=== PATIENT | male | born 1965 | race African-American/Black ===

== ENCOUNTER 2017-04-24 09:13 | Outpatient (CLI) | payer MEDICARE, MEDICAID ==
[~2017-04-24] VITALS: Ht 177.8 cm; Wt 154.2 kg
[~2017-04-24 09:13] MED LIST: ASPIRIN81 MG ORAL
[2017-04-24] MEDS ORDERED: OMEPRAZOLE20 M2 ORAL (09:53)
[2017-04-24] MEDS ORDERED: FUROSEMIDE40 MG/5 ML ORAL (09:53)
[2017-04-24] MEDS ORDERED: COREG12.5 MG ORAL (09:53)
[2017-04-24] MEDS ORDERED: DOCUSATE SODIU100 MG ORAL (09:53)
[2017-04-24] MEDS ORDERED: LIPITOR80 MG ORAL (09:53)
[2017-04-24] MEDS ORDERED: ISORDIL40 MG ORAL (09:53)
[2017-04-24] MEDS ORDERED: NORVASC10 MG ORAL (09:53)
[2017-04-24] MEDS ORDERED: LYRICA100 MG ORAL (09:53)
[2017-04-24] MEDS ORDERED: EFFIENT10 MG PO (09:53)
[2017-04-24] MEDS ORDERED: SENNA LAX8.6 MG PO (09:53)
[2017-04-24] MEDS ORDERED: NAPROXEN250 M1 PO (09:53)
[2017-04-24 09:54] VITALS: BP 175/115
--- NOTE | 2017-04-24 09:56 | GI Initial Consult Note ---
History of Present Illness General Date patient seen: Apr 24, 2017 Time patient seen: 09:47 Referring physician: SACHI LOZANO Reason for Consultation: SCREENING COLON Present Illness HPI 51 year old male patient referred by Dr. Lozano presents today for routine colonoscopy screening. Last colonoscopy was approximately 7 years ago with unremarkable results. Today, the patient has c/o of GERD and constipation. Denies any unintentional weight loss or changes in dietary habits. No signs of abuse or neglect. Patient is not fall risk. 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 EF 45% Home Meds Active Scripts Aspirin* (ASPIRIN*) 81 Mg Tab.chew, 81 MG ORAL DAILY, #60 TAB Prov:WILBUR HERNANDEZ D.OChapincito 09/23/13 Reported Medications Pregabalin (LYRICA) 100 Mg Capsule, 75 MG ORAL THREE TIMES A DAY, CAP 04/24/17 Naproxen (Naproxen) 250 Mg Tablet, 500 MG PO, TAB 04/24/17 Docusate Sodium* (DOCUSATE SODIUM*) 100 Mg Capsule, 100 MG ORAL THREE TIMES A DAY, CAP 04/24/17 Amlodipine Besylate (Norvasc) 10 Mg Tablet, 10 MG ORAL DAILY, TAB 04/24/17 Prasugrel Hcl (EFFIENT) 10 Mg Tablet, 10 MG PO, TAB 04/24/17 Atorvastatin (Lipitor) 80 Mg Tablet, 80 MG ORAL DAILY, TAB 0 Refills 04/24/17 Isosorbide Dinitrate (ISORDIL*) 40 Mg Tablet, MG ORAL, #30 TAB 0 Refills 04/24/17 Omeprazole (OMEPRAZOLE) 20 Mg Capsule.dr, 20 MG ORAL DAILY, CAP 04/24/17 Carvedilol (Coreg) 12.5 Mg Tablet, 12.5 MG ORAL EVERY 12 HOURS, TAB 04/24/17 Furosemide (FUROSEMIDE) 40 Mg/5 Ml Solution, 20 MG ORAL DAILY, ML 04/24/17 Sennosides (SENNA LAX) 8.6 Mg Tablet, 8.6 MG PO, TAB 04/24/17 Med list reviewed/reconciled: Yes Allergies: Coded Allergies: No Known Allergies (Unverified , 09/23/13) Patient History History Provided By: Patient, Medical Record PMH Narrative HTN Sleep Apnea >> CPAP [place] 2013 arthritis GERD constipation Past Surgical History: Lap Band 7-8 yrs ago Angiogram Family History Narrative Mother >> breast CA Social History: Reports: smoking - quit 30 years ago Review of Systems All Other Systems: negative except mentioned in HPI Physical Exam T 98.6 BP 175/115 P 58 97 RA Height 5'10 WT 340 lbs Sp02 EP Interpretation: reviewed, normal General Appearance: well appearing, no apparent distress, alert Head: normocephalic EENT: PERRL/EOMI, normal ENT inspection Neck: supple Respiratory: normal breath sounds, no respiratory distress Cardiovascular: normal rate Gastrointestinal: normal inspection, non tender, soft, normal bowel sounds, non -distended Rectal: deferred Genitourinary: deferred Musculoskeletal: normal inspection, back normal Neurologic: normal inspection, alert, oriented x3, responsive Psychiatric: normal inspection, judgement/insight normal, memory normal Skin: normal inspection, normal color, no rash, warm/dry, palpation normal, well hydrated Lymphatic: normal inspection, no adenopathy GI: Plan Problems: (1) GERD (gastroesophageal reflux disease) (2) Colon cancer screening (3) Constipation (4) HTN (hypertension) (5) Morbid obesity with BMI of 50.0-59.9, adult Plan Colonoscopy scheduled for tomorrow, 04/24/17. - CLD & (Nulytely/Suprep/Movi-Prep) prep instructions given and acknowledged by patient. - NPO @ [place] day prior procedure explained. - patient instructed to stop Effient today. cont bowel regime ppi Seen with Dr. Sanchez. Thank you for this patient referral. Mary Chacko N.P. Apr 24, 2017 09:56
== END 2017-04-24 09:45 | disposition home or self-care (01) ==
LOC: PAN 09:13
DX: K21.9 Gastro-esophageal reflux disease without esophagitis (principal); K59.00 Constipation, unspecified; I10 Essential (primary) hypertension; E66.01 Morbid (severe) obesity due to excess calories; Z68.43 Body mass index [BMI] 50.0-59.9, adult; Z87.891 Personal history of nicotine dependence; G47.30 Sleep apnea, unspecified; I25.2 Old myocardial infarction; M19.90 Unspecified osteoarthritis, unspecified site; Z79.82 Long term (current) use of aspirin
CPT/HCPCS: 99201

== ENCOUNTER 2017-04-25 06:58 | Day surgery (SDC) | payer MEDICARE, MEDICAID ==
[~2017-04-25] VITALS: Ht 177.8 cm; Wt 154.2 kg
[2017-04-25] VITALS (7 sets, daily range): BP systolic 121–144; BP diastolic 74–95
[~2017-04-25 06:58] MED LIST changes: +COREG12.5 MG ORAL; +DOCUSATE SODIU100 MG ORAL; +EFFIENT10 MG PO; +FUROSEMIDE40 MG/5 ML ORAL; +ISORDIL40 MG ORAL; +LIPITOR80 MG ORAL; +LYRICA100 MG ORAL; +NAPROXEN250 M1 PO; +NORVASC10 MG ORAL; +OMEPRAZOLE20 M2 ORAL; +SENNA LAX8.6 MG PO
[2017-04-25 08:19] LABS: BASOPHILS % (AUTO) 1.4 % (0.0-2.0); EOSINOPHILS % (AUTO) 0.4 % (0.0-3.0); HEMATOCRIT 48.9 % (42.0-52.0); HEMOGLOBIN 15.8 G/DL (14.2-18.0); MEAN CORPUSCULAR VOLUME 90 FL (80-99); MONOCYTES % (AUTO) 10.8 % (1.0-10.0); NEUTROPHILS % (AUTO) 50.5 % (45.0-75.0); PLATELET COUNT 147 K/UL (150-450); RED BLOOD COUNT 5.46 M/UL (4.70-6.10); RED CELL DISTRIBUTION WIDTH 13.3 % (11.6-14.8); WHITE BLOOD COUNT 4.6 K/UL (4.8-10.8)
[2017-04-25 08:30] LABS: INR 1.1 (0.9-1.1)
[2017-04-25 08:32] LABS: ANION GAP 8 mmol/L (5-15); BLOOD UREA NITROGEN 13 mg/dL (7-18); CALCIUM 8.6 MG/DL (8.5-10.1); CARBON DIOXIDE 29 MMOL/L (21-32); CHLORIDE 106 MMOL/L (98-107); CREATININE 1.1 MG/DL (0.55-1.30); POTASSIUM 3.2 MMOL/L (3.5-5.1); SODIUM 143 MMOL/L (136-145)
[2017-04-25] MEDS ORDERED: Propofol 200mg/20ml IV ONE (09:00)
[2017-04-25] MEDS ORDERED: Lidocaine 1% MPF 10mg/ml 5ml ONE (09:00)
[2017-04-25] MEDS ORDERED: Midazolam 2mg/2ml Inj ONE (09:00)
--- NOTE | 2017-04-25 09:05 | Short Stay Surgery H&P ---
History of Present Illness History of Present Illness Chief Complaint see recent consult note HPI Remy Wiggins is a 51 year old male who was admitted on for Gerd,Colon Screening Patient History Allergies: Coded Allergies: No Known Allergies (Unverified , 09/23/13) PAST MEDICAL HISTORY: Past Surgeries: Social History: Medication History Scheduled Amlodipine Besylate (Norvasc), 10 MG ORAL DAILY, (Reported) Aspirin* (Aspirin*), 81 MG ORAL DAILY Atorvastatin (Lipitor), 80 MG ORAL DAILY, (Reported) Carvedilol (Coreg), 12.5 MG ORAL EVERY 12 HOURS, (Reported) Docusate Sodium* (Docusate Sodium*), 100 MG ORAL THREE TIMES A DAY, (Reported) Furosemide (Furosemide), 20 MG ORAL DAILY, (Reported) Omeprazole (Omeprazole), 20 MG ORAL DAILY, (Reported) Pregabalin (Lyrica), 75 MG ORAL THREE TIMES A DAY, (Reported) Miscellaneous Medications Isosorbide Dinitrate (Isordil*), MG ORAL, (Reported) Naproxen (Naproxen), 500 MG PO, (Reported) Prasugrel Hcl (Effient), 10 MG PO, (Reported) Sennosides (Senna Lax), 8.6 MG PO, (Reported) Physical Exam Vital Signs Last Vital Signs Date Time Temp Pulse Resp B/P (MAP) Pulse Ox O2 Delivery O2 Flow Rate FiO2 04/25/17 07:37 97.4 73 20 136/92 97 Room Air Labs Laboratory Tests Test 04/25/17 08:00 White Blood Count 4.6 K/UL (4.8-10.8) L Red Blood Count 5.46 M/UL (4.70-6.10) Hemoglobin 15.8 G/DL (14.2-18.0) Hematocrit 48.9 % (42.0-52.0) Mean Corpuscular Volume 90 FL (80-99) Mean Corpuscular Hemoglobin 28.9 PG (27.0-31.0) Mean Corpuscular Hemoglobin Concent 32.3 G/DL (32.0-36.0) Red Cell Distribution Width 13.3 % (11.6-14.8) Platelet Count 147 K/UL (150-450) L Mean Platelet Volume 11.5 FL (6.5-10.1) H Neutrophils (%) (Auto) 50.5 % (45.0-75.0) Lymphocytes (%) (Auto) 37.0 % (20.0-45.0) Monocytes (%) (Auto) 10.8 % (1.0-10.0) H Eosinophils (%) (Auto) 0.4 % (0.0-3.0) Basophils (%) (Auto) 1.4 % (0.0-2.0) Prothrombin Time 11.2 SEC (9.30-11.50) Prothromb Time International Ratio 1.1 (0.9-1.1) Activated Partial Thromboplast Time 27 SEC (23-33) Sodium Level 143 MMOL/L (136-145) Potassium Level 3.2 MMOL/L (3.5-5.1) L Chloride Level 106 MMOL/L (98-107) Carbon Dioxide Level 29 MMOL/L (21-32) Anion Gap 8 mmol/L (5-15) Blood Urea Nitrogen 13 mg/dL (7-18) Creatinine 1.1 MG/DL (0.55-1.30) Estimat Glomerular Filtration Rate > 60 mL/min (>60) Glucose Level 103 MG/DL (74-106) Calcium Level 8.6 MG/DL (8.5-10.1) Plan Attestation Are the patient's medical conditions optimized for surgery? BALAJI MIRANDA Apr 25, 2017 09:05
--- NOTE | 2017-04-25 09:05 | Pre-Procedure Note/Attestation ---
Pre-Procedure Note/Attestation Complete Prior to Procedure Planned Procedure: not applicable Procedure Narrative: esophagogastroduodenoscopy and colonoscopy Indications for Procedure Pre-Operative Diagnosis: screening colon, chronic Gerd Attestation I attest that I discussed the nature of the procedure; its benefits; risks and complications; and alternatives (and the risks and benefits of such alternatives ), prior to the procedure, with the patient (or the patient's legal national account representative). I attest that, if there was a reasonable possibility of needing a blood transfusion, the patient (or the patient's legal national account representative) was given the [facility] standardized written summary, pursuant to the [place] Blood Safety Act ([place] Health and Safety Code # 1645, as amended). I attest that I re-evaluated the patient just prior to the surgery and that there has been no change in the patient's H&P, except as documented below: BALAJI MIRANDA Apr 25, 2017 09:05
--- NOTE | 2017-04-25 09:06 | Anethesia Preoperative Eval ---
Anesthesia Pre-op PMH/ROS General Date of Evaluation: Apr 25, 2017 Time of Evaluation: 09:02 Anesthesiologist: Colleen ASA Score: ASA 3 Mallampati Score Class I : Soft palate, uvula, fauces, pillars visible Class II: Soft palate, uvula, fauces visible Class III: Soft palate, base of uvula visible Class IV: Only hard plate visible Mallampati Classification: Class III Surgeon: Daniel Diagnosis: GERD, Colon Screening Surgical Procedure: EGD/Colon Anesthesia History: none Social History: smoking - quit 10 years ago Family History: no anesthesia problems Allergies: Coded Allergies: No Known Allergies (Unverified , 09/23/13) Medications: see eMAR Past Medical History Cardiovascular: Reports: HTN, CAD, OR - 2014, other - CHF Pulmonary: Reports: ADRIÁN - Resp Distress Gastrointestinal/Genitourinary: Reports: GERD, other - constipation Neurologic/Psychiatric: Reports: depression/anxiety Musculoskeletal/Integumentary: Reports: OA, DJD, other - back pain Other: obesity Anesthesia Pre-op Phys. Exam Physician Exam Last Vital Signs Date Time Temp Pulse Resp B/P (MAP) Pulse Ox O2 Delivery O2 Flow Rate FiO2 04/25/17 07:37 97.4 73 20 136/92 97 Room Air Constitutional: NAD Neurologic: CN 2-12 intact Cardiovascular: RRR Respiratory: other - decreased at bases bilateral Gastrointestinal: S/NT/ND Airway Exam Mallampati Score: Class III MO: full ROM: full Teeth: intact Dentures: no upper, no lower Anesthesia Pre-op A/P Labs Hematology Test 04/25/17 08:00 White Blood Count 4.6 K/UL (4.8-10.8) L Red Blood Count 5.46 M/UL (4.70-6.10) Hemoglobin 15.8 G/DL (14.2-18.0) Hematocrit 48.9 % (42.0-52.0) Mean Corpuscular Volume 90 FL (80-99) Mean Corpuscular Hemoglobin 28.9 PG (27.0-31.0) Mean Corpuscular Hemoglobin Concent 32.3 G/DL (32.0-36.0) Red Cell Distribution Width 13.3 % (11.6-14.8) Platelet Count 147 K/UL (150-450) L Mean Platelet Volume 11.5 FL (6.5-10.1) H Neutrophils (%) (Auto) 50.5 % (45.0-75.0) Lymphocytes (%) (Auto) 37.0 % (20.0-45.0) Monocytes (%) (Auto) 10.8 % (1.0-10.0) H Eosinophils (%) (Auto) 0.4 % (0.0-3.0) Basophils (%) (Auto) 1.4 % (0.0-2.0) Coagulation Test 04/25/17 08:00 Prothrombin Time 11.2 SEC (9.30-11.50) Prothromb Time International Ratio 1.1 (0.9-1.1) Activated Partial Thromboplast Time 27 SEC (23-33) Chemistry Test 04/25/17 08:00 Sodium Level 143 MMOL/L (136-145) Potassium Level 3.2 MMOL/L (3.5-5.1) L Chloride Level 106 MMOL/L (98-107) Carbon Dioxide Level 29 MMOL/L (21-32) Anion Gap 8 mmol/L (5-15) Blood Urea Nitrogen 13 mg/dL (7-18) Creatinine 1.1 MG/DL (0.55-1.30) Estimat Glomerular Filtration Rate > 60 mL/min (>60) Glucose Level 103 MG/DL (74-106) Calcium Level 8.6 MG/DL (8.5-10.1) Risk Assessment & Plan Assessment: A&Ox4 Plan: MAC Status Change Before Surgery: No Pre-Antibiotics Given Within 1 Hr of Incision: Liliana Pastor CRNA Apr 25, 2017 09:06
--- NOTE | 2017-04-25 09:07 | Immediate Post-Op Evaluation ---
Immediate Post-Op Evalulation Immediate Post-Op Evalulation Procedure: EGD/Colonoscopy Date of Evaluation: Apr 25, 2017 Time of Evaluation: 09:45 IV Fluids: NSS 400 ml Blood Products: 0 Estimated Blood Loss: 0 Urinary Output: 0 Blood Pressure Systolic: 130 Blood Pressure Diastolic: 93 Pulse Rate: 79 Respiratory Rate: 17 O2 Sat by Pulse Oximetry: 100 Temperature (Fahrenheit): 97.9 Pain Score (1-10): 0 Nausea: No Vomiting: No Patient Status: awake, reacts, patent Hydration Status: adequate Given Within 1 Hr of Incision: Lilinaa Pastor CRNA Apr 25, 2017 09:07
--- NOTE | 2017-04-25 09:34 | Endoscopy Procedure Note ---
Endoscopy Procedure Note Indication for Procedure: screening colon, GERD Procedures Performed: EGD, colonoscopy Operative Findings/Diagnosis: gastritis, hemorrhoids Specimen: yes Pt Tolerated Procedure Well: Yes Estimated Blood Loss: none Anesthesiologist: marcia Anesthesia: MAC Implant(s) used?: No 50 yrs or older w/o bx or poly: Yes 10yrs. F/U not recommended: Yes If not recommended, why?: Above average risk 10 yrs. F/U needed: Yes 18 years or older w/prev. colo: No BALAJI MIRANDA Apr 25, 2017 09:34
--- NOTE | 2017-04-25 09:59 | 48 Hour Post Anesthesia Eval ---
Post Anesthesia Evaluation Procedure: EGD/Colonoscopy Date of Evaluation: Apr 25, 2017 Time of Evaluation: 09:57 Blood Pressure Systolic: 130 0: 90 Pulse Rate: 77 Respiratory Rate: 18 Temperature (Fahrenheit): 97.9 O2 Sat by Pulse Oximetry: 100 Airway: patent Nausea: No Vomiting: No Pain Intensity: 0 Hydration Status: adequate Mental Status/LOC: patient returned to baseline Post-Anesthesia Complications: none Follow-up care needed: patient intructions given Liliana Macias CRNA Apr 25, 2017 09:59
--- NOTE | 2017-04-25 10:45 | Procedure Note ---
DATE OF PROCEDURE: 04/25/2017 SURGEON: Perry Sanchez M.D. ANESTHESIOLOGIST: Colleen MESSINA. REFERRING PHYSICIAN: Harry Todd M.D. PROCEDURE: Upper endoscopy, biopsy, and colonoscopy. ANESTHESIA: Per Colleen MESSINA. INSTRUMENT: Olympus adult flexible endoscope and colonoscope. INDICATION: Screening colonoscopy, chronic GERD. The procedure, risks, benefits, and possible consequences, including hemorrhage, aspiration, perforation and infection, and alternative treatments, were explained to the patient/legal guardian by Dr. Perry Sanchez and the patient/legal guardian understood and accepted these risks. INDICATION: Screening colonoscopy chronic gastroesophageal reflux disease. DESCRIPTION OF PROCEDURE: After informed consent was obtained and the patient was adequately sedated, Olympus upper endoscope was advanced from mouth into the second portion of duodenum and retroflexion was performed of the stomach. The patient had evidence of diffuse gastritis. Random biopsy from antrum was obtained to rule out H. pylori infection, otherwise the rest of the upper endoscopy examination grossly seemed to be within normal limit. At this time, the upper endoscope was retrieved. The patient was turned over for colonoscopy. First, a rectal exam was performed, which was normal. Then, the scope was advanced from the rectum into the cecum documented by the appendix orifice, ileocecal valve, and right upper quadrant palpation. Quality of prep overall was good except for the cecum, which had some semi-solid fluids and some seeds making the examination of the cecum somewhat limited, but the rest of the exam was grossly adequate. The patient had normal colonoscopy examination. No obvious mass, polyp, diverticulosis, or any pathology seen. Retroflexion of the rectum was performed which showed evidence of medium-sized nonbleeding internal hemorrhoids. The patient tolerated the procedure very well without any complication. SUMMARY OF FINDINGS: 1. Diffuse gastritis, status post biopsy. 2. Internal hemorrhoids. RECOMMENDATIONS: Follow up biopsies and treat accordingly. I want to thank Dr. Harry Todd for this kind referral. Perry Sanchez M.D. DR: Leia JOB#: [id number] CC: Harry Todd M.D.; Fax#: [phone]
--- NOTE | 2017-05-07 14:02 | Cardiology Report ---
APPROVED REPORT EKG Measurement Heart [id number] Normal sinus rhythm with sinus arrhythmia Inferior infarct, age undetermined Cannot rule out Anterior infarct, age undetermined Abnormal ECG
== END 2017-04-25 10:45 | disposition home or self-care (01) ==
LOC: GAS 06:58
DX: Z12.11 Encounter for screening for malignant neoplasm of colon (principal); K21.9 Gastro-esophageal reflux disease without esophagitis; K64.8 Other hemorrhoids; K29.50 Unspecified chronic gastritis without bleeding; I11.0 Hypertensive heart disease with heart failure; I50.9 Heart failure, unspecified; F41.9 Anxiety disorder, unspecified; F32.9 Major depressive disorder, single episode, unspecified; G47.33 Obstructive sleep apnea (adult) (pediatric); Z87.891 Personal history of nicotine dependence; E66.9 Obesity, unspecified; Z68.42 Body mass index [BMI] 45.0-49.9, adult; Z79.82 Long term (current) use of aspirin
CPT/HCPCS: 36415; 43239; 80048; 85025; 85610; 85730; 93005; G0121; J2250; J2704; 94003; 94150

== ENCOUNTER 2017-05-10 12:54 | Outpatient (CLI) | payer MEDICARE, MEDICAID ==
[2017-05-10 13:13] VITALS: BP 130/80
--- NOTE | 2017-05-10 13:47 | GI Progress Note ---
Assessment/Plan Problems: (1) Morbid obesity with BMI of 50.0-59.9, adult ICD Codes: E66.01 - Morbid (severe)obesity due to excess calories; Z68.43 - Body mass index (bmi) 50-59.9 , adult SNOMED: 278043355 (2) GERD (gastroesophageal reflux disease) ICD Codes: K21.9 - Gastro-esophageal reflux disease without esophagitis SNOMED: 018934420 (3) Constipation ICD Codes: K59.00 - Constipation, unspecified SNOMED: 62712874 Status: stable Status Narrative Seen with Dr. Sacnhez. Assessment/Plan SUMMARY OF FINDINGS reviewed with patient: 1. Diffuse gastritis, status post biopsy. 2. Internal hemorrhoids. RECOMMENDATIONS: Follow up biopsies and treat accordingly. >> negative rx Linzess RTC x 3 months repeat colonoscopy in 2022. Subjective Gastrointestinal/Abdominal: Reports: no symptoms Objective Last 24 Hour Vital Signs Date Time Temp Pulse Resp B/P (MAP) Pulse Ox O2 Delivery O2 Flow Rate FiO2 05/10/17 13:13 98.2 52 16 130/80 96 General Appearance: WD/WN, no apparent distress, alert Cardiovascular: normal rate Respiratory/Chest: normal breath sounds, no respiratory distress Abdominal Exam: normal bowel sounds, non tender, soft Extremities: normal range of motion, non-tender Mary Chacko N.P. May 10, 2017 13:47
== END 2017-05-10 13:29 | disposition home or self-care (01) ==
LOC: PAN 12:54
DX: K59.00 Constipation, unspecified (principal); K21.9 Gastro-esophageal reflux disease without esophagitis; E66.01 Morbid (severe) obesity due to excess calories; K29.70 Gastritis, unspecified, without bleeding; K64.8 Other hemorrhoids
CPT/HCPCS: 99211